=== PATIENT | female | born 1995 | race American Indian/Alaskan Native ===

== ENCOUNTER 2017-12-03 16:24 | Outpatient (CLI) | payer BC, OTHER | END 2017-12-03 17:15 | disposition home or self-care (01) | LOC: TRG 16:24 | PROVIDERS: ATTEND Obstetrics & Gynecology | DX: O47.1 False labor at or after 37 completed weeks of gestation (principal); Z3A.40 40 weeks gestation of pregnancy ==

== ENCOUNTER 2017-12-09 19:14 | Inpatient (IN) | payer BC, OTHER ==
[2017-12-09] MEDS ORDERED: BRETHINE SUB-Q PRN (22:02)
[2017-12-09] MEDS ORDERED: STADOL IV PRN (22:02)
[2017-12-09] MEDS ORDERED: PHENERGAN PO PRN (22:02)
[2017-12-09] MEDS ORDERED: BRETHINE IVP PRN (22:02)
[2017-12-09] MEDS ORDERED: XYLOCAINE 2% INFILTRATI ONE (22:02)
[2017-12-09] MEDS ORDERED: MINERAL OIL PO PRN (22:02)
[2017-12-09] MEDS ORDERED: ePHEDrine SULFATE IV PRN (22:02)
--- NOTE | 2017-12-09 22:02 | History and Physical Report ---
History of Present Illness Date of examination: 12/09/17 Date of admission: 12/09/17 19:14 History of present illness: Patient seen in office earlier today of admission for OB visit at 40 weeks and 6 days. Patient had NST with decelerations and contractions seen also by ultrasound revealed a estimated weight of greater than 9 pounds. Patient was instructed to go straight to the hospital from office with the patient arrived to the hospital several hours later. 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 no EDC Calculations LMP: 12/03/2017 EDC Confirmation: 12/03/2017 Past History : 1 Past Medical History: Negative Past Medical History Past Surgical History: Negative Past Surgical History Past Medical History Surgery (Non-obstetrics gyn physician): Negative Past Surgical History Abnormal PAP: negative SYEDA Exposure: negative Infertility: negative Uterine Anomaly: negative Uterine Surgery (not C/S): negative Other Gynecologic Problems: negative Medical History Comments: negative Family Hx: negative Social Hx: student Infection History Partner hx. of genital herpes: no Rash, Viral, or Febrile illness since last LMP? no Varicella/Chicken Pox Status: Unknown Genetic History Congenital Heart Defect: Mom: no Dad: no Demian Disease: Mom: no Dad: no Thalassemia Mom: no Dad: no Neural Tube Defect Mom: no Dad: no Down's Syndrome Mom: no Dad: no Lalito-Sachs Mom: no Dad: no Sickle Cell Disease/Trait Mom: no Dad: no Hemophilia Mom: no Dad: no Muscular Dystrophy Mom: no Dad: no Cystic Fibrosis Mom: no Dad: no Clarion Chorea Mom: no Dad: no Mental Retardation Mom: no Dad: no Fragile X Mom: no Dad: no Other Genetic/Chromosomal Disorder Mom: no Dad: no Child w/other defect Mom: no Dad: no Enviromental Exposures Hx of Parvovirus (Fifth Disease): no Occupational Exposure to Children: none Comments: ETOH, MJ @ 7 WKS PRIOR TO KNOWING ABOUT Current Allergies (reviewed today): No known allergies Laboratory Results Routine Urinalysis Past History Past Medical History: other (see HPI) Past Surgical History: other (see HPI) INS[employer]OR [employer]ENDER History: other (see HPI) Family/Genetic History: other (see HPI) Social history: other (see HPI) - Obstetrical History Expected Date of Delivery: 12/03/17 Actual Gestation: 41 Week(s) 0 Day(s) : 1 Para: 0 Hx # Term Pregnancies: 0 Number of Pregnancies: 0 Spontaneous Abortions: 0 Induced : 0 Number of Living Children: 0 Medications and Allergies Allergies Allergy/AdvReac Type Severity Reaction Status Date / Time No Known Allergies Allergy Unverified 12/03/17 17:23 Home Medications Medication Instructions Recorded Confirmed Last Taken Type Pnv No.95/Ferrous Fum/Folic AC PO 12/09/17 1 Day Ago History [ Vitamins Tablet] ~12/08/17 1tablet - Vital Signs Vital signs: Vital Signs Pulse Pulse Ox 102 H 97 12/09/17 19:43 12/09/17 19:43 Temp Pulse Resp BP Pulse Ox 98.5 F 105 H 18 111/56 96 12/09/17 20:40 12/09/17 21:59 12/09/17 20:40 12/09/17 21:04 12/09/17 21:59 - Physical Exam Breasts: Positive: deferred Cardiovascular: Regular rate Lungs: Positive: Normal air movement Abdomen: Positive: normal appearance Cervix: Positive: other (per RN) Uterus: Positive: enlarged - Obstetrical FHR: category 1 Uterine Contraction Pattern: Irregular Uterine Tone Measurement Phase: Resting Uterine Contraction Intensity: Mild Results Result Diagrams: 12/09/17 22:47 All other labs normal. Assessment and Plan - Patient Problems (1) Post term over 40 weeks Current Visit: Yes Status: Acute (2) Macrosomia affecting management of mother in third trimester, single gestation Current Visit: Yes Status: Acute Plan to address problem: Discussed indication for primary section patient declined. Assessment the patient that has been weight was greater than 4500 g and has indication for primary section without the induction of labor discussed with the patient risks of microsomia delivery including risks due to size including shoulder dystocia or injury to the mother's pelvis. Also discussed some risks of section patient states she desires some trial of labor. Patient also the knowledge that she had these conversations with . The midforearm 0 induction due to patient's frequency of contractions although not all proceed by her Will start with low-dose Pitocin. We'll conversion of induction Pitocin in the morning. Serial induction explained to the patient and all questions answered
[2017-12-09] MEDS ORDERED: LACTATED RINGERS 1,000 ML IV SCH (23:00)
[2017-12-09] MEDS ORDERED: PITOCin/NS 30 UNIT/500ML 30 UNITS/500 ML BAG IV SCH (23:00)
[2017-12-09] MEDS ORDERED: PITOCin/NS 20 UNIT/1000ML DRIP 20 UNITS/1,000 ML BAG IV SCH (23:00)
[2017-12-09 23:06] LABS: Hematocrit 29.5 % (30.3-42.9); Hemoglobin 9.6 gm/dl (10.1-14.3)
[2017-12-09 23:07] LABS: Hematocrit 30.5 % (30.3-42.9); Hemoglobin 9.8 gm/dl (10.1-14.3); Mean Corpuscular HGB Conc 32 % (30-34); Mean Corpuscular Hemoglobin 26 pg (28-32); Mean Corpuscular Volume 82 fl (79-97); Platelet Count 253 K/mm3 (140-440); Red Blood Count 3.72 M/mm3 (3.65-5.03); Red Cell Distribution Width 15.6 % (13.2-15.2)
--- NOTE | 2017-12-10 05:37 | Event Note ---
Date: 12/10/17 Called RN at 0230 reports category 1 tracing patient with mild contractions on low dose pitcin and 0500 reports FHTs less reactive w/o decels patient asleep irregular contractions
--- NOTE | 2017-12-10 07:33 | Progress Note ---
Assessment and Plan 22y/o @ 41 weeks, IOL for macrosomia and postdates. Patient resting w/o complaints. Patient did make cervical change throughout the night on low dose pitocin but did have frequent ctx. Patient verbalized understanding that baby is large (95th%, EFW 9#8oz +/-1lbs on u/s yesterday) and there is concern re: risks of vaginal delivery. Discussed again this morning that pt has been offered a primary c/s but she wishes to continue IOL to attempt vaginal delivery. FHT CAT 1 at this time, discussed if baby begins to show any signs of distress the plan of care would need to change for an operative delivery. Due to patient's desires for a vaginal delivery, will d/c low dose pitocin, allow quick shower and meal and begin active management pitocin. Opportunity given for questions, pt verbalizes understanding of teaching. Dr. Horner aware of patient's status. - Patient Problems (1) 41 weeks gestation of Current Visit: Yes Status: Acute (2) Macrosomia affecting management of mother in third trimester, single gestation Current Visit: Yes Status: Acute (3) Excessive weight gain affecting Current Visit: Yes Status: Acute Subjective - Subjective Date of service: 12/10/17 Principal diagnosis: IUP @ 41weeks, IOL, EFW 9#10lbs, vertex Patient reports: movement normal, no new complaints, no loss of fluid, no vaginal bleeding, no contractions Objective - Vital Signs Vital Signs: Vital Signs - 12hr 12/09/17 12/09/17 12/09/17 19:43 19:47 19:48 Temperature Pulse Rate 102 H 108 H 121 H Respiratory Rate Blood Pressure 115/68 Blood Pressure [Right] O2 Sat by Pulse 97 97 Oximetry 12/09/17 12/09/17 12/09/17 19:53 19:58 20:03 Temperature Pulse Rate 115 H 101 H 112 H Respiratory Rate Blood Pressure Blood Pressure [Right] O2 Sat by Pulse 97 98 97 Oximetry 12/09/17 12/09/17 12/09/17 20:08 20:13 20:18 Temperature Pulse Rate 108 H 100 H 104 H Respiratory Rate Blood Pressure Blood Pressure [Right] O2 Sat by Pulse 96 98 97 Oximetry 12/09/17 12/09/17 12/09/17 20:23 20:28 20:33 Temperature Pulse Rate 103 H 102 H 97 H Respiratory Rate Blood Pressure Blood Pressure [Right] O2 Sat by Pulse 98 97 95 Oximetry 12/09/17 12/09/17 12/09/17 20:38 20:40 20:43 Temperature 98.5 F Pulse Rate 101 H 106 H 109 H Respiratory 18 Rate Blood Pressure Blood Pressure 111/56 [Right] O2 Sat by Pulse 95 96 Oximetry 12/09/17 12/09/17 12/09/17 20:48 21:04 21:09 Temperature Pulse Rate 111 H 108 H 92 H Respiratory Rate Blood Pressure 111/56 Blood Pressure [Right] O2 Sat by Pulse 96 97 Oximetry 12/09/17 12/09/17 12/09/17 21:14 21:19 21:22 Temperature Pulse Rate 119 H 101 H 105 H Respiratory Rate Blood Pressure Blood Pressure [Right] O2 Sat by Pulse 97 97 94 Oximetry 12/09/17 12/09/17 12/09/17 21:24 21:29 21:30 Temperature Pulse Rate 101 H 103 H 104 H Respiratory Rate Blood Pressure Blood Pressure [Right] O2 Sat by Pulse 95 97 90 Oximetry 12/09/17 12/09/17 12/09/17 21:34 21:39 21:44 Temperature Pulse Rate 105 H 110 H 93 H Respiratory Rate Blood Pressure Blood Pressure [Right] O2 Sat by Pulse 96 96 95 Oximetry 12/09/17 12/09/17 12/09/17 21:49 21:54 21:59 Temperature Pulse Rate 107 H 116 H 105 H Respiratory Rate Blood Pressure Blood Pressure [Right] O2 Sat by Pulse 97 96 96 Oximetry 12/10/17 12/10/17 12/10/17 00:05 00:06 00:10 Temperature Pulse Rate 84 94 H 99 H Respiratory Rate Blood Pressure 92/53 Blood Pressure [Right] O2 Sat by Pulse 98 97 Oximetry 12/10/17 12/10/17 12/10/17 00:15 00:20 00:22 Temperature Pulse Rate 93 H 92 H 94 H Respiratory Rate Blood Pressure Blood Pressure [Right] O2 Sat by Pulse 95 95 94 Oximetry 12/10/17 12/10/17 12/10/17 00:25 00:30 00:34 Temperature Pulse Rate 95 H 94 H 89 Respiratory 20 Rate Blood Pressure 99/54 Blood Pressure 92/53 [Right] O2 Sat by Pulse 95 95 Oximetry 12/10/17 12/10/17 12/10/17 00:35 00:40 00:45 Temperature Pulse Rate 94 H 94 H 91 H Respiratory Rate Blood Pressure Blood Pressure [Right] O2 Sat by Pulse 96 95 95 Oximetry 12/10/17 12/10/17 12/10/17 00:50 00:55 01:00 Temperature Pulse Rate 91 H 89 93 H Respiratory Rate Blood Pressure Blood Pressure [Right] O2 Sat by Pulse 95 95 96 Oximetry 12/10/17 12/10/17 12/10/17 01:05 01:10 01:15 Temperature Pulse Rate 93 H 85 84 Respiratory Rate Blood Pressure 98/53 Blood Pressure [Right] O2 Sat by Pulse 98 95 95 Oximetry 12/10/17 12/10/17 12/10/17 01:20 01:25 01:36 Temperature Pulse Rate 87 101 H 105 H Respiratory Rate Blood Pressure Blood Pressure [Right] O2 Sat by Pulse 95 96 97 Oximetry 12/10/17 12/10/17 12/10/17 01:40 01:46 01:51 Temperature Pulse Rate 95 H 100 H 86 Respiratory Rate Blood Pressure Blood Pressure [Right] O2 Sat by Pulse 98 96 96 Oximetry 12/10/17 12/10/17 12/10/17 01:56 02:01 02:06 Temperature Pulse Rate 113 H 92 H 85 Respiratory Rate Blood Pressure 88/49 Blood Pressure [Right] O2 Sat by Pulse 97 97 96 Oximetry 12/10/17 12/10/17 12/10/17 02:11 02:16 02:21 Temperature Pulse Rate 96 H 90 95 H Respiratory Rate Blood Pressure Blood Pressure [Right] O2 Sat by Pulse 97 97 97 Oximetry 12/10/17 12/10/17 12/10/17 02:26 02:31 02:35 Temperature Pulse Rate 85 83 81 Respiratory Rate Blood Pressure 103/55 Blood Pressure [Right] O2 Sat by Pulse 97 97 Oximetry 12/10/17 12/10/17 12/10/17 02:36 02:41 02:46 Temperature Pulse Rate 86 92 H 82 Respiratory Rate Blood Pressure Blood Pressure [Right] O2 Sat by Pulse 97 97 95 Oximetry 12/10/17 12/10/17 12/10/17 02:48 02:51 03:02 Temperature Pulse Rate 96 H 96 H 90 Respiratory Rate Blood Pressure Blood Pressure [Right] O2 Sat by Pulse 94 94 98 Oximetry 12/10/17 12/10/17 12/10/17 03:04 03:07 03:12 Temperature Pulse Rate 80 89 107 H Respiratory Rate Blood Pressure 100/60 Blood Pressure [Right] O2 Sat by Pulse 97 94 Oximetry 12/10/17 12/10/17 12/10/17 03:17 03:22 03:27 Temperature Pulse Rate 90 100 H 84 Respiratory Rate Blood Pressure Blood Pressure [Right] O2 Sat by Pulse 97 97 97 Oximetry 12/10/17 12/10/17 12/10/17 03:30 03:32 03:35 Temperature 97.8 F Pulse Rate 89 83 83 Respiratory Rate Blood Pressure 89/51 Blood Pressure 100/60 [Right] O2 Sat by Pulse 96 Oximetry 12/10/17 12/10/17 12/10/17 03:37 03:42 03:47 Temperature Pulse Rate 89 91 H 79 Respiratory Rate Blood Pressure Blood Pressure [Right] O2 Sat by Pulse 97 96 96 Oximetry 12/10/17 12/10/17 12/10/17 03:52 03:57 04:00 Temperature Pulse Rate 87 103 H 90 Respiratory 20 Rate Blood Pressure Blood Pressure 90/60 [Right] O2 Sat by Pulse 96 96 Oximetry 12/10/17 12/10/17 12/10/17 04:02 04:03 04:07 Temperature Pulse Rate 95 H 91 H 86 Respiratory Rate Blood Pressure 85/52 Blood Pressure [Right] O2 Sat by Pulse 96 96 Oximetry 12/10/17 12/10/17 12/10/17 04:12 04:17 04:22 Temperature Pulse Rate 101 H 81 87 Respiratory Rate Blood Pressure Blood Pressure [Right] O2 Sat by Pulse 98 95 96 Oximetry 12/10/17 12/10/17 12/10/17 04:27 04:32 04:35 Temperature Pulse Rate 86 88 91 H Respiratory Rate Blood Pressure 87/50 Blood Pressure [Right] O2 Sat by Pulse 96 96 Oximetry 12/10/17 12/10/17 12/10/17 04:37 04:41 04:42 Temperature Pulse Rate 91 H 82 80 Respiratory Rate Blood Pressure 84/50 Blood Pressure [Right] O2 Sat by Pulse 96 92 94 Oximetry 12/10/17 12/10/17 12/10/17 04:43 04:47 04:48 Temperature Pulse Rate 84 83 92 H Respiratory Rate Blood Pressure 85/58 Blood Pressure [Right] O2 Sat by Pulse 95 94 Oximetry 12/10/17 12/10/17 12/10/17 04:52 04:57 04:59 Temperature Pulse Rate 89 81 82 Respiratory Rate Blood Pressure Blood Pressure [Right] O2 Sat by Pulse 96 95 94 Oximetry 12/10/17 12/10/17 12/10/17 05:00 05:02 05:04 Temperature 97.6 F Pulse Rate 88 86 88 Respiratory 18 Rate Blood Pressure 101/60 Blood Pressure 101/60 [Right] O2 Sat by Pulse 96 Oximetry 12/10/17 12/10/17 12/10/17 05:07 05:11 05:12 Temperature Pulse Rate 110 H 85 82 Respiratory Rate Blood Pressure Blood Pressure [Right] O2 Sat by Pulse 96 94 95 Oximetry 12/10/17 12/10/17 12/10/17 05:15 05:17 05:22 Temperature Pulse Rate 85 87 111 H Respiratory Rate Blood Pressure Blood Pressure 101/65 [Right] O2 Sat by Pulse 96 96 Oximetry 12/10/17 12/10/17 12/10/17 05:23 05:27 05:32 Temperature Pulse Rate 90 106 H 105 H Respiratory Rate Blood Pressure Blood Pressure [Right] O2 Sat by Pulse 94 96 96 Oximetry 12/10/17 12/10/17 12/10/17 05:34 05:37 05:42 Temperature Pulse Rate 122 H 100 H 82 Respiratory Rate Blood Pressure 95/56 Blood Pressure [Right] O2 Sat by Pulse 96 96 Oximetry 12/10/17 12/10/17 12/10/17 05:47 05:59 06:04 Temperature Pulse Rate 114 H 91 H 96 H Respiratory Rate Blood Pressure 100/64 Blood Pressure [Right] O2 Sat by Pulse 97 99 97 Oximetry 12/10/17 12/10/17 12/10/17 06:09 06:14 06:19 Temperature Pulse Rate 87 80 84 Respiratory Rate Blood Pressure Blood Pressure [Right] O2 Sat by Pulse 96 97 96 Oximetry 12/10/17 12/10/17 12/10/17 06:24 06:29 06:34 Temperature Pulse Rate 91 H 83 78 Respiratory Rate Blood Pressure Blood Pressure [Right] O2 Sat by Pulse 98 97 97 Oximetry 12/10/17 12/10/17 12/10/17 06:35 06:39 06:44 Temperature Pulse Rate 99 H 80 87 Respiratory Rate Blood Pressure 96/63 Blood Pressure [Right] O2 Sat by Pulse 98 96 Oximetry 12/10/17 12/10/17 12/10/17 06:47 06:49 06:54 Temperature Pulse Rate 97 H 90 93 H Respiratory Rate Blood Pressure Blood Pressure [Right] O2 Sat by Pulse 89 98 97 Oximetry 12/10/17 12/10/17 12/10/17 06:59 07:04 07:05 Temperature Pulse Rate 84 89 85 Respiratory Rate Blood Pressure 83/48 Blood Pressure [Right] O2 Sat by Pulse 96 96 Oximetry 12/10/17 12/10/17 12/10/17 07:09 07:14 07:16 Temperature Pulse Rate 88 85 90 Respiratory Rate Blood Pressure 88/53 Blood Pressure [Right] O2 Sat by Pulse 96 96 Oximetry 12/10/17 12/10/17 12/10/17 07:19 07:24 07:25 Temperature Pulse Rate 86 79 105 H Respiratory 18 Rate Blood Pressure Blood Pressure 95/56 [Right] O2 Sat by Pulse 96 96 Oximetry 12/10/17 12/10/17 07:29 07:34 Temperature Pulse Rate 85 78 Respiratory Rate Blood Pressure 86/50 Blood Pressure [Right] O2 Sat by Pulse 96 97 Oximetry - Exam Breasts: normal Cardiovascular: Regular rate Lungs: Clear to auscultation, Normal air movement Abdomen: Present: normal appearance, soft Vulva: both: normal Uterus: Present: normal FHR: auscultation normal, category 1 Uterine Contraction Monitor Mode: External Cervical Dilatation: 1.5 Uterine Contraction Pattern: Regular Uterine Tone Measurement Phase: Contraction Uterine Contraction Intensity: Mild Extremities: normal Deep Tendon Reflex Grade: Normal +2 - Labs Labs: Abnormal Labs 12/09/17 12/09/17 22:47 22:47 Hgb 9.6 L 9.8 L Hct 29.5 L MCH 26 L RDW 15.6 H Laboratory Results - last 24 hr 12/09/17 12/09/17 12/09/17 22:47 22:47 22:47 WBC 7.8 RBC 3.72 Hgb 9.6 L 9.8 L Hct 29.5 L 30.5 MCV 82 MCH 26 L MCHC 32 RDW 15.6 H Plt Count 253 Blood Type O POSITIVE Antibody Screen Negative
[2017-12-10] MEDS ORDERED: LACTATED RINGERS 1,000 ML IV SCH (09:00)
[2017-12-10] MEDS ORDERED: PITOCin/NS 30 UNIT/500ML 30 UNITS/500 ML BAG IV SCH (09:00)
[2017-12-10] MEDS ORDERED: SUBLIMAZE IV PRN (09:30)
[2017-12-10] MEDS ORDERED: ePHEDrine SULFATE IV PRN (09:30)
[2017-12-10] MEDS ORDERED: BRETHINE IVP PRN (09:30)
[2017-12-10] MEDS ORDERED: ZOFRAN IV PRN ×2 (09:30→19:05)
[2017-12-10] MEDS ORDERED: XYLOCAINE 2% INFILTRATI NR (09:30)
[2017-12-10] MEDS ORDERED: PITOCin/NS 20 UNIT/1000ML DRIP 20 UNITS/1,000 ML BAG IV SCH (10:00)
[2017-12-10] MEDS ORDERED: MINERAL OIL PO PRN (10:00)
--- NOTE | 2017-12-10 16:55 | Event Note ---
Date: 12/10/17 patient w/o complaints of pain, no change in SVE. Discussed options to allow dinner/ambulation/cervidil or proceed with c/s. Patient would like to proceed with c/s for suspected macrosomia. Dr. Siri mooney.
[2017-12-10] MEDS ORDERED: REGLAN IV SCH (16:56)
[2017-12-10] MEDS ORDERED: BICITRA PO SCH (16:56)
[2017-12-10] MEDS ORDERED: PEPCID IV SCH (16:56)
[2017-12-10] MEDS ORDERED: ANCEF/STERILE WATER 2 GM/20 ML 2 GM/20 ML SYRINGE IV NR (17:00)
[2017-12-10] MEDS ORDERED: ASTRAMORPH PF 10MG/10ML ONE (17:43)
[2017-12-10] MEDS ORDERED: NEO SYNEPHRINE/NS Syringe(OR USE) IV ONE (18:00)
[2017-12-10] MEDS ORDERED: METHERGINE IM ONE (18:21)
[2017-12-10] MEDS ORDERED: DILAUDID IV PRN (19:05)
[2017-12-10] MEDS ORDERED: NARCAN 0.4 MG/1 ML IV PRN ×2 (19:05→19:31)
--- NOTE | 2017-12-10 19:05 | Operative Report ---
Operative Report Operative Report: Date of procedure: 12/10/2017 Pre-operative diagnosis: 41 weeks gestation Suspected Large for gestational age Failed induction of labor Post-operative diagnosis: Same plus OP presentation Procedure name(s): Primary low transverse section via Pfannenstiel skin incision Surgeon: Dr. Horner Labeler: LUCINDA Anesthesia: Combined spinal epidural EBL: 800 mL Urine output: 100 mL of clear urine out at the end of the procedure Fluids: 700 mL Findings: Liveborn male infant OP presentation weight 9 lbs. 9 oz. Apgars of 7 and 8 at one and 5 minutes Grossly normal fallopian tubes and ovaries bilaterally Indications: Patient admitted for induction of labor secondary to being postterm and having late deceleration in the office on NST. Patient had undergone induction of labor throughout the night as well as for the balance of the day with Pitocin reaching 24 milliunits with adequate contractions without cervical change. Patient desired primary section for suspected large for gestational age . All risks benefits and alternatives were discussed with patient. Consents were signed and placed on the chart. Procedure: Patient was taking to the operating room. Patient was then prepped and draped in sterile fashion after anesthesia was found to be adequate. A low transverse skin incision was made with the scalpel and carried down to the underlying layer of fascia with the Bovie. The fascia was then incised in the midline and this incision was extended bilaterally with the Bovie. The superior aspect of the fascia was grasped with Dena clamps tented upward and dissected off of the anterior rectus muscles with the scalpel. In similar fashion the inferior aspect of the fascia was grasped with Dena clamps tented upward and dissected off of the anterior rectus muscles. The rectus muscles were then bluntly divided in the midline. The peritoneum was identified and entered into sharply. Steve retractor was placed.. A lower transverse uterine incision was made with the scalpel and extended bilaterally with the bandage scissors. Artificial rupture of membranes was performed yielding clear amniotic fluid. The 's head was then delivered atraumatically. The anterior shoulder and rest of delivered without difficulty. The umbilical cord was clamped x2. The cord was cut. The was then placed in sterile bassinet. The cord blood was collected. The placenta was manually extracted in its entirety. The uterus was exteriorized and cleared of all clots and debris. The uterine incision was closed using 0 Vicryl in a running locking fashion. A second imbricating layer of the same suture was then created. The posterior cul-de-sac was copiously irrigated. The uterus was returned to the abdomen. The gutters were also irrigated. The anterior rectus muscles were reapproximated using 3-0 Vicryl. The anterior rectus fascia was reapproximated using 0 Vicryl in a running fashion. The subcuticular fat was reapproximated using 2-0 Vicryl in a running fashion. The skin was reapproximated with 4-0 Monocryl in a subcuticular stitch. The patient tolerated the procedure well. Sponge lap and needle counts were all correct x3. Patient was taken to the recovery room awake and in stable condition.
[2017-12-10] MEDS ORDERED: TORADOL IV PRN (19:07)
[2017-12-10] MEDS ORDERED: NORCO 5/325 PO PRN (19:31)
[2017-12-10] MEDS ORDERED: TUCKS PAD TP PRN (19:31)
[2017-12-10] MEDS ORDERED: LANSINOH TP PRN (19:31)
[2017-12-10] MEDS ORDERED: D5LR 1,000 ML IV SCH (20:00)
[2017-12-10] MEDS ORDERED: SODIUM CHLORIDE FLUSH SYRINGE 10 ML IV NR (20:00)
[2017-12-10] MEDS ORDERED: ANCEF/NS 1 GM/50 ML 1 GM/50 ML BAG IV SCH (20:00)
[2017-12-11] MEDS: ceFAZolin 1 GM in NACL 0.9% 20 ML IV SCH ×2 (04:05→12:19)
[2017-12-11 07:18] LABS: Hematocrit 30.5 % (30.3-42.9); Hemoglobin 10.1 gm/dl (10.1-14.3)
[2017-12-11] MEDS: FEOSOL PO SCH (08:21)
[2017-12-11] MEDS ORDERED: ZOFRAN IV PRN (09:11)
[2017-12-11] MEDS ORDERED: PHENERGAN PR PRN (09:11)
[2017-12-11] MEDS ORDERED: MORPHINE IV PRN (09:11)
[2017-12-11] MEDS ORDERED: NARCAN 0.4 MG/1 ML IV PRN (09:11)
[2017-12-11] MEDS ORDERED: TYLENOL PO PRN (09:11)
[2017-12-11] MEDS ORDERED: TYLENOL PR PRN (09:11)
[2017-12-11] MEDS ORDERED: TORADOL IV PRN (09:11)
--- NOTE | 2017-12-11 09:25 | Progress Note ---
Subjective Date of service: 12/11/17 Principal diagnosis: IUP @ 41weeks, IOL, EFW 9#10lbs, vertex Interval history: Patient had some post op nausea but it has now resolved. No other anesthetic related complaints. Objective - Constitutional Vitals: Vital Signs - 12hr 12/11/17 12/11/17 12/11/17 01:21 05:54 07:30 Temperature 97.6 F 98.3 F Pulse Rate 79 83 81 Respiratory 20 20 Rate Blood Pressure 102/65 105/60 O2 Sat by Pulse 95 95 Oximetry 12/11/17 07:31 Temperature 98.5 F Pulse Rate Respiratory 18 Rate Blood Pressure 106/65 O2 Sat by Pulse Oximetry - Labs CBC & Chem 7: 12/11/17 06:44
[2017-12-11] MEDS ORDERED: SODIUM CHLORIDE FLUSH SYRINGE 10 ML IV NR (10:00)
[2017-12-11] MEDS ORDERED: PITOCin/NS 20 UNIT/1000ML DRIP 20 UNITS/1,000 ML BAG IV SCH (10:00)
[2017-12-11] MEDS: NORCO 5/325 PO PRN ×2 (12:27→18:30)
[2017-12-11] MEDS: MOTRIN PO PRN ×2 (12:28→18:30)
[2017-12-11] MEDS ORDERED: BOOSTRIX IM ONE (19:33)
[2017-12-12] MEDS: MOTRIN PO PRN ×3 (01:30→22:52)
[2017-12-12] MEDS: NORCO 5/325 PO PRN ×4 (01:31→19:57)
[2017-12-12] MEDS: FEOSOL PO SCH (09:20)
--- NOTE | 2017-12-12 11:36 | Progress Note ---
Assessment and Plan - Patient Problems (1) delivery delivered Current Visit: Yes Status: Acute Plan to address problem: Continue s/p c/s pathway Subjective - Subjective Date of service: 12/11/17 Principal diagnosis: POD#1 LTCS Interval history: resting in bed no complaints, minimal bleeding Patient reports: no flatus : in NICU Objective - Vital Signs Latest vital signs: Vital Signs Temp Pulse Resp BP BP Pulse Ox 12/12/17 08:28 97.7 F 83 18 103/75 97 12/12/17 00:50 98.1 F 72 20 98/51 12/11/17 16:00 97.8 F 82 18 102/64 Intake and Output 12/11/17 12/12/17 12/12/17 22:59 06:59 14:59 Intake Total 720 240 Output Total 500 Balance 220 240 Intake: Oral 480 Intake, Free Water 240 240 Output: Urine 500 Indwelling Catheter 500 Other: Total, Intake Amount 480 Total, Output Amount 500 # Voids Void 2 # Bowel Movements 0 - Exam Breasts: Present: normal. Absent: pain, engorged Lungs: Present: Clear to auscultation, Normal air movement Abdomen: Present: normal appearance, soft, normal bowel sounds Uterus: Present: fundal height below umbilicus Extremities: Present: normal. Absent: tenderness, edema Incision: Present: dressed
--- NOTE | 2017-12-12 11:37 | Progress Note ---
Assessment and Plan - Patient Problems (1) delivery delivered Current Visit: Yes Status: Acute Plan to address problem: Continue s/p c/s pathway Subjective - Subjective Date of service: 12/12/17 Principal diagnosis: POD# 2LTCS Interval history: Patient in NICU sitting in a wheelchair holding baby in her arms. No complaints , minimal bleeding [place]: in NICU Objective - Vital Signs Latest vital signs: Vital Signs Temp Pulse Resp BP BP Pulse Ox 12/12/17 08:28 97.7 F 83 18 103/75 97 12/12/17 00:50 98.1 F 72 20 98/51 12/11/17 16:00 97.8 F 82 18 102/64 Intake and Output 12/11/17 12/12/17 12/12/17 22:59 06:59 14:59 Intake Total 720 240 Output Total 500 Balance 220 240 Intake: Oral 480 Intake, Free Water 240 240 Output: Urine 500 Indwelling Catheter 500 Other: Total, Intake Amount 480 Total, Output Amount 500 # Voids Void 2 # Bowel Movements 0
[2017-12-12] MEDS: MILK OF MAGNESIA PO PRN (12:30)
[2017-12-12] MEDS: MYLICON PO PRN ×2 (12:30→22:52)
--- NOTE | 2017-12-13 06:39 | Discharge Summary ---
Providers - Providers Date of Admission: 12/09/17 19:14 Date of discharge: 12/13/17 (pt agrees with d/c ) Attending physician: KRISTINA AMARO 12/11/17 09:11 Consult to [employer] [CONS] Routine Reason For Exam: Primary care physician: KRISTINA AMARO Hospitalization Reason for admission: induction of labor (postdates) Delivery: Procedure: primary low transverse (failed IOL; macrosomia) Episiotomy: none Laceration: none Incision: normal, dry, intact Other procedures: none complications: none Discharge diagnosis: IUP at term delivered baby: male Hospital course: uncomplicated section Pt A&O X 3 No c/o voiced @ time of rounds. NB remains in NICU VSS FF below umb Lochia small Incision D&I H&H stable No s/sx of anemia Doing well s/p c/s. P: d/ c today with instructions RTO 1 week postop care. Will call and tyrone circ when NB is d/c. Condition at discharge: Good Disposition: DC-01 TO HOME OR SELFCARE - Discharge Diagnoses (1) delivery delivered Status: Acute Comment: RTO 1 week postop care Plan - Discharge Medications Prescriptions: Docusate Sodium [Colace] 100 mg PO BID PRN #60 capsule PRN Reason: Constipation Ferrous Sulfate 325 mg PO BID #60 tablet. Ibuprofen 800 mg PO Q6HR #30 tablet Lidocain2.5%/Prilocai2.5% [Emla] 2 gm TP ONCE #1 tube oxyCODONE /ACETAMINOPHEN [Percocet 5/325] 1 tab PO Q4HR #30 tab - Provider Discharge Summary Activity: routine, no sex for 6 weeks, no heavy lifting 4 weeks, no strenuous exercise Diet: routine Instructions: routine Additional instructions: [] Smoking cessation referral if applicable(refer to patient education folder for contact #) [] Refer to [facility] Booklet Call your doctor immediately for: * Fever > 100.5 * Heavy vaginal bleeding ( >1 pad per hour) * Severe persistent headache * Shortness of breath * Reddened, hot, painful area to leg or breast * Drainage or odor from incision. * Keep incision clean and dry at all times and follow doctor's instructions regarding bathing/showering - Follow up plan Follow up: KRISTINA AMARO MD [Primary Care Provider] - 7 Days (Congratulations! Please call [phone] to schedule your postoperative visit in 1 week. Take medications as prescribed. Call to schedule son's circumcision in one week after he is discharged. Bring the EMLA cream with you to his visit. Do NOT use at home. Call with any concerns.)
[2017-12-13] MEDS: MOTRIN PO PRN (08:41)
[2017-12-13] MEDS: NORCO 5/325 PO PRN (08:42)
[2017-12-13] MEDS: FEOSOL PO SCH (08:43)
[2017-12-13] MEDS: MILK OF MAGNESIA PO PRN (08:47)
[2017-12-13 09:46] VITALS: BP 106/61
== END 2017-12-13 14:20 | disposition home or self-care (01) | DRG 766 ==
LOC: LD 19:14 → OB 12-10 20:24
PROVIDERS: ADMIT Obstetrics & Gynecology; ATTEND Obstetrics & Gynecology
PROC: 10D00Z1 Extraction of Products of Conception, Low, Open Approach (ICD-10-PCS; principal; 2017-12-13)
DX: O48.0 Post-term pregnancy (principal); Z37.0 Single live birth; O36.63X0 Maternal care for excessive fetal growth, third trimester, not applicable or unspecified; Z3A.41 41 weeks gestation of pregnancy; O76 Abnormality in fetal heart rate and rhythm complicating labor and delivery
CPT/HCPCS: 36415; 85014; 85018; 85027; 86592; 86850; 86900; 86901; 99211; A6250; G0463; J0690; J2210; J2274; J2370; J2405; J2590; J2765; J7120